=== PATIENT | male | born 1995 | race Caucasian/White ===

== ENCOUNTER 2019-02-22 15:57 | Emergency (ER) | payer SELFPAY ==
[~2019-02-22] VITALS: Ht 175.3 cm; Wt 84.1 kg
[2019-02-22 16:06] VITALS: BP 120/75; TEMP 98.6
[2019-02-22 16:46] LABS: COLLECTION METHOD CLEAN CATCH
[2019-02-22 16:50] LABS: BASO # 0.2 (0.0-0.2); BASO % 1.6 % (0.0-2.0); EOS # 0.5 (0.0-0.7); EOS % 4.4 % (0-4.0); GRAN # 7.9 (1.4-6.5); GRAN % 65.8 % (42.2-75.2); HEMATOCRIT 45.7 % (42.0-52.0); HEMOGLOBIN 15.3 g/dl (13.5-18.0); LYMPH # 2.4 (1.2-3.4); LYMPH % 20.1 % (20.0-51.0); MEAN CELL VOLUME 84 fl (80.0-100.0); MEAN CORPUSCULAR HEMOGLOBIN 28 pg (27.0-31.0); MEAN CORPUSCULAR HGB CONC 34 g/dl (33.0-37.0); MEAN PLATELET VOLUME 10.6 fl (7.4-10.4); MONO # 0.9 (0.1-0.6); MONO % 7.4 % (1.7-9.3); PLATELET COUNT 254 K/mm3 (130-400); RED BLOOD COUNT 5.45 M/mm3 (4.20-5.60)
[2019-02-22 16:54] LABS: CALCIUM 9.6 mg/dL (8.4-10.2); CREATININE, serum 0.92 (0.66-1.25); POTASSIUM 4.4 mmol/L (3.4-5.0)
[2019-02-22 16:57] LABS: MUCOUS Present /lpf; PH 6 (5-8); SQUAMOUS EPITHELIAL 0-2 /hpf; URINE APPEARANCE Clear; URINE BACTERIA None Seen /hpf; URINE BILIRUBIN Negative (NEGATIVE); URINE BLOOD Negative (NEGATIVE); URINE COLOR Yellow; URINE GLUCOSE Negative (NEGATIVE); URINE KETONE Negative (NEGATIVE); URINE LEUKOCYTE ESTERASE Negative (NEGATIVE); URINE NITRATE Negative (NEGATIVE); URINE PROTEIN(semi-quant) Negative (NEGATIVE); URINE RBC 0-2 /hpf; URINE UROBILINOGEN Negative (NEGATIVE)
[2019-02-22 17:22] VITALS: PULSE 86
== END 2019-02-22 17:22 | disposition home or self-care (01) ==
LOC: COL.ER 15:57
PROVIDERS: Emergency Medicine
DX: R59.0 Localized enlarged lymph nodes (principal)